=== PATIENT | male | born 1965 | race Asian ===

== ENCOUNTER 2020-01-01 15:51 | Outpatient (REF) | payer OTHER, SELFPAY ==
[2020-01-01 16:12] LABS: COVID-19 Test Positive (Negative)
== END 2020-01-01 15:52 | disposition home or self-care (01) ==
LOC: HO.LAB 15:51
PROVIDERS: Visit Provider Internal Medicine
DX: Z20.828 Contact with and (suspected) exposure to other viral communicable diseases (principal)
CPT/HCPCS: 87635

== ENCOUNTER 2020-01-24 10:52 | Outpatient (REF) | payer OTHER, SELFPAY ==
[2020-01-24 13:39] LABS: COVID-19 Test Negative (Negative)
[2020-01-24 16:03] LABS: SARS COV2 PCR INHOUSE NEGATIVE (Negative)
== END 2020-01-24 10:53 | disposition home or self-care (01) ==
LOC: HO.LAB 10:52
PROVIDERS: Internal Medicine; Visit Provider Emergency Medicine
DX: Z20.828 Contact with and (suspected) exposure to other viral communicable diseases (principal)
CPT/HCPCS: 87635; C9803; U0003

== ENCOUNTER 2020-02-01 20:52 | Outpatient (REF) | payer OTHER, SELFPAY ==
[2020-02-01 21:51] LABS: COVID-19 Test Negative (Negative)
== END 2020-02-01 20:53 | disposition home or self-care (01) ==
LOC: HO.LAB 20:52
PROVIDERS: PCP Internal Medicine; Visit Provider Internal Medicine
DX: Z20.828 Contact with and (suspected) exposure to other viral communicable diseases (principal)
CPT/HCPCS: 87635

== ENCOUNTER 2020-02-19 18:10 | Outpatient (REF) | payer OTHER, SELFPAY ==
[2020-02-19 19:26] LABS: SARS COV2 IgG Positive (Negative)
== END 2020-02-19 18:11 | disposition home or self-care (01) ==
LOC: HO.LAB 18:10
PROVIDERS: PCP Internal Medicine; Visit Provider Nurse Practitioner Primary Care
DX: Z20.828 Contact with and (suspected) exposure to other viral communicable diseases (principal)
CPT/HCPCS: 86769

== ENCOUNTER 2020-03-11 01:56 | Outpatient (REF) | payer OTHER, SELFPAY ==
[2020-03-11 02:25] LABS: COVID-19 Test Negative (Negative)
== END 2020-03-11 01:57 | disposition home or self-care (01) ==
LOC: HO.EMPCOV 01:56
PROVIDERS: Visit Provider Internal Medicine
DX: Z20.828 Contact with and (suspected) exposure to other viral communicable diseases (principal)
CPT/HCPCS: 87635

== ENCOUNTER 2021-01-23 21:46 | Outpatient (REF) | payer OTHER, SELFPAY ==
[2021-01-23 22:58] LABS: Influenza A PCR NEGATIVE (Negative); Influenza B PCR NEGATIVE (Negative); Resp Syncy Virus RNA Qual PCR NEGATIVE (Negative); SARS COV2 PCR INHOUSE NEGATIVE (Negative)
== END 2021-01-23 21:47 | disposition home or self-care (01) ==
LOC: HO.LAB 21:46
PROVIDERS: Visit Provider Internal Medicine
DX: Z20.822 Contact with and (suspected) exposure to COVID-19 (principal)
CPT/HCPCS: 0241U; 36415

== ENCOUNTER 2021-01-28 00:31 | Outpatient (REF) | payer OTHER, SELFPAY ==
[2021-01-28 01:41] LABS: Influenza A PCR NEGATIVE (Negative); Influenza B PCR NEGATIVE (Negative); Resp Syncy Virus RNA Qual PCR NEGATIVE (Negative); SARS COV2 PCR INHOUSE NEGATIVE (Negative)
== END 2021-01-28 00:32 | disposition home or self-care (01) ==
LOC: HO.LAB 00:31
PROVIDERS: Visit Provider Internal Medicine
DX: Z20.822 Contact with and (suspected) exposure to COVID-19 (principal)
CPT/HCPCS: 0241U; 36415

== ENCOUNTER 2021-02-27 22:21 | Outpatient (REF) | payer OTHER, SELFPAY ==
[2021-02-27 23:12] LABS: Influenza A PCR NEGATIVE (Negative); Influenza B PCR NEGATIVE (Negative); Resp Syncy Virus RNA Qual PCR NEGATIVE (Negative); SARS COV2 PCR INHOUSE NEGATIVE (Negative)
== END 2021-02-27 22:22 | disposition home or self-care (01) ==
LOC: HO.LAB 22:21
PROVIDERS: PCP Internal Medicine; Visit Provider Physician Assistant
DX: Z20.822 Contact with and (suspected) exposure to COVID-19 (principal); R05.9 Cough, unspecified; R51.9 Headache, unspecified
CPT/HCPCS: 0241U; 36415

== ENCOUNTER 2021-03-12 01:35 | Outpatient (REF) | payer OTHER, SELFPAY ==
[2021-03-12 02:00] LABS: COVID-19 Test Negative (Negative); IDNOW Serial# 9DD0AD1C
== END 2021-03-12 01:36 | disposition home or self-care (01) ==
LOC: HO.LAB 01:35
PROVIDERS: Visit Provider Internal Medicine
DX: Z20.822 Contact with and (suspected) exposure to COVID-19 (principal)
CPT/HCPCS: 36415; 87635

== ENCOUNTER 2022-10-25 15:45 | Outpatient (AMB) | payer OTHER, SELFPAY ==
--- NOTE | 2022-10-25 15:47 | MHC.OFFVIS ---
Intake Vital Signs 10/25/22 15:49 Height 5 ft 9 in Weight 178 lb BMI 26.3 BP 116/78 Blood Pressure Location Lt brachial Position Sitting Pulse 69 Pulse Source Monitor Intake Visit Reasons: NPV/SELF/CHEST PAIN Intake Note: New patient visit witH EKG for evaluation of chest pain and shortness of breath. 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 Over the last 2 years he has noticed that he gets short of breath with activities actually when he is running or pushing himself. He also gets some chest tightness. These symptoms have progressed somewhat over the last 2 years. He is saying he has stopped running and just does weight training at this stage. He also has background of hyperlipidemia and uses fenofibrate. He has history of seizure disorder and was seizure-free till recently when he had a seizure and has been started on Keppra at this stage. Strong family history of coronary artery disease with father and many other family members getting MIs. Blood pressure control is good. [facility] Surgical History (Updated 10/25/22 @ 15:49 by KRYSTIN Frank) H/O vasectomy Family History (Updated 10/25/22 @ 15:49 by KRYSTIN Frank) Father Coronary stent patent Mother No problems noted. Social History (Updated 10/25/22 @ 15:49 by KRYSTIN Frank) Alcohol intake: never Patient Tobacco Use Status: Never used Tobacco Review of Systems Const Denies chills, Denies daytime sleepiness, Denies fatigue, Denies fever(s), Denies frequent falls, Denies night sweats, Denies snoring, Denies weakness, Denies weight gain and Denies weight loss Eyes Denies loss of vision ENT Denies dizziness and Denies hearing loss Card Denies chest pain, Denies chest pain with activity, Denies syncope, Denies rapid heart rate, Denies edema, Denies claudication, Denies leg edema, Denies lightheadedness, Denies palpitations, Denies dyspnea, Denies dyspnea on exertion and Denies orthopnea Resp Denies cough, Denies excessive phlegm production, Denies dyspnea, Denies dyspnea on exertion, Denies snoring and Denies wheezing GI Denies abdominal pain, Denies hematochezia, Denies change in bowel habits, Denies change in stool character, Denies heartburn, Denies nausea and Denies vomiting Denies hematuria, Denies dysuria and Denies urinary frequency Musc Denies arthralgias, Denies muscle weakness, Denies numbness and Denies tingling Skin/Breast Denies nail changes and Denies rash Neuro Denies Abnormal speech present, Denies dizziness, Denies syncope, Denies frequent falls, Denies loss of vision, Denies memory loss, Denies numbness, Denies tingling and Denies weakness Psych Denies depression and Denies memory loss Endo Denies fatigue and Denies palpitations Aller/Immun Denies wheezing Physical Exam Vital Signs: Last Vital Signs Pulse 69 10/25/22 15:49 BP 116/78 10/25/22 15:49 BMI result Body Mass Index 26.3 GENERAL APPEARANCE: in no acute distress, pleasant. NECK: no carotid bruit, no jugular venous distention. SKIN: no suspicious lesions, warm and dry. HEART: no murmurs, regular rate and rhythm. LUNGS: clear to auscultation bilaterally. ABDOMEN: soft, nontender. EXTREMITIES: no edema. PERIPHERAL PULSES: equal. NEUROLOGIC: No gross deficits, AAO X 3 Neuro Speech: No Abnormal speech present Office Procedures EKG Details: Sinus rhythm 69 beats per minute, normal ECG, QTC 411 milliseconds. [id number], Complete Assessment & Plan Assessment & Plan (1) Chest pain: Code(s): R07.9 - Chest pain, unspecified Plan Pleasant 57 year gentleman who is here for assessment of chest pain. He has been experiencing some chest tightness along with dyspnea over the last couple of years. This was happening with running and going up hill. He feels that the symptoms are somewhat progressive. Given his age and family history there is concern for underlying coronary artery disease. After discussion we have decided to refer him for a coronary CT angiogram. Will also do some basic blood workup including lipid panel. He previously had elevated triglycerides and his LDL could not be calculated. While being on Tricor hopefully his triglyceride levels probably have improved and we will be able to calculate an LDL level. If triglycerides are too high then we will get a direct LDL level. Thank you for allowing me to participate in the care of your patient. Please feel free to contact me if you have any questions. Orders: Orders CT Cardiac Coronary Angio Today R07.9 - Chest pain, unspecified Lipid Panel Today R07.9 - Chest pain, unspecified Comprehensive Met. Panel Today R07.9 - Chest pain, unspecified Complete Blood Count Auto Diff Today R07.9 - Chest pain, unspecified Coding Level of Care Code Procedure Only Diagnoses Chest pain R07.9 CPT Codes EKG - CPT: 90982-[id number], Complete ([id number])
[2022-10-25 15:49] VITALS: BP 116/78; PULSE 69; BMI 26.3
== END 2022-10-25 16:18 | disposition home or self-care (01) ==
LOC: HO.HCS 15:46
PROVIDERS: PCP Internal Medicine; Visit Provider Internal Medicine Cardiovascular Disease
DX: R07.9 Chest pain, unspecified (principal)
CPT/HCPCS: 93010

== ENCOUNTER → 2022-10-25 15:45 | Outpatient (BNVA) | payer OTHER, SELFPAY | PROVIDERS: PCP Internal Medicine; Visit Provider Internal Medicine Cardiovascular Disease | DX: R07.9 Chest pain, unspecified (principal); R06.02 Shortness of breath; E78.5 Hyperlipidemia, unspecified; Z82.49 Family history of ischemic heart disease and other diseases of the circulatory system | CPT/HCPCS: 93005 ==

== ENCOUNTER → 2022-11-23 23:59 | Outpatient (BNV) | payer OTHER, SELFPAY | PROVIDERS: PCP Internal Medicine; Visit Provider Internal Medicine Cardiovascular Disease | DX: I20.8 Other forms of angina pectoris (principal) | CPT/HCPCS: 93458; 99152 ==

== ENCOUNTER 2024-09-22 08:15 | Outpatient (REF) | payer OTHER, SELFPAY ==
--- OUTSIDE RECORDS SUMMARY | 2024-09-22 08:22 | XMS_ITS | Clinical Summary ---
Author Organization [facility] Address [address] [place] [address] Care Team Providers Care Pathologist Name Role Phone Jacy Waters MD Primary Care Provider [phone] Allergies No known active allergies Medications levETIRAcetam (KEPPRA) 500 MG tablet Take 1 tablet (500 mg total) by mouth 2 (two) times a day. 60 tablet 09/27/2022 Active Social History Tobacco Use Types Packs/Day Years Used Date Smoking Tobacco: Never Tobacco Cessation:Counseling Given: Not Answered Alcohol Use Standard Drinks/Week Comments Never 0 (1 standard drink = 0.6 oz pur e alcohol) Sex and Gender Information Value Date Recorded Sex Assigned at Male 09/27/2022 12:43 PM EDT Legal Sex Male 2:22 PM EDT Gender Identity Male 09/27/2022 12:43 PM EDT Sexual Orientation Heterosexual (straight) 09/27 12:43 PM EDT Last Filed Vital Signs Vital Sign Reading Time Taken Comments Blood Pressure 111/81 09/27/2022 1:06 PM EDT Pulse 85 09/27/2022 1:06 PM EDT Temperature 36.3 C (97.3 F) 09/27/2022 12:02 PM EDT Respiratory Rate 16 09/27/2022 1:06 PM EDT Oxygen Saturation 96% 09/27/2022 1:06 PM EDT Inhaled Oxygen Concentration - - Weight 79.4 kg (175 lb) 09/27/2022 12:02 PM EDT Height 177.8 cm (5' 10 ) 09/27/2022 12:02 PM EDT Body Mass Index 25.11 09/27/2022 12:02 PM EDT Plan of Treatment Health Maintenance Due Date Last Done Comments Hepatitis C Virus Screening 1966 HIV Screening 1979 DTaP/Tdap/Td Vaccines (1 - Tdap) 1985 Hepatitis B Vaccines (1 of 3 - 19+ 3-dose series) 12/18 Colonoscopy 2011 Pneumococcal Vaccines 50+ (1 of 1 - PCV) 01/07/2016 Zoster (Shingles) Vaccine (1 of 2) 01/07/2016 COVID-19 Vaccine (1 - 2023- season) 2023 Influenza Vaccine 10/17/2024 Insurance Care Teams Pathologist Relationship Specialty Start Date End Date Jacy Waters MD [address] [place] [address] PCP - General Internal Medicine 11/02/23
--- OUTSIDE RECORDS SUMMARY | 2024-09-22 08:22 | XMS_ITS | Patient Health Record ---
Author Organization [facility] Address [address] [place] [address] Care Team Providers Care Personnel Specialist Name Role Phone TRACEY PEÑA Primary Care Provider Unavail able Aureliano Pearce Unavailable [phone] Reason For Referral No Information Medications Medication SIG (Take, Route, Frequency, Duration) Notes Start Date End Date Status Multivitamin Active Social History Tobacco Use: Social History Observation Description Date Details (start date - stop date) Never Smoker NA - NA Tobacco Use/Smoking Question Answer Notes Patient is a nonsmoker Alcohol Screen Question Answer Notes Did you have a drink containing alcohol in the p ast year? No Points 0 Interpretation Negative Section Notes: Nonsmoker; no alcohol Problems Problem Type SNOMED Code ICD Code Onset Dates Problem Status W/U Status Risk Notes Problem [id number] Encounter for screening for malignant neoplasm of colon (Z12.11) Active confirmed Problem 68613476 Esophageal dysphagia (R13.10) Active confirmed Plan Of Treatment Future Test Test Name Order Date UPPER GI ENDOSCOPY BALLOOON DILATION OF ESOPH 02/13/2017 COLONOSCOPY 02/13/2017 Insurance Providers Payer Name Payer Address Payer Phone Subscriber Number Group Number Insured Name Patient Relationship to Insured Coverage Start Date Coverage End Date R [address] [address] [place] [id number] KIMBERLY HAMMOND Self - patient is the insured Medical (General) History Medical History History ICD Code Denies [place],DM,CVA,Lung disease,renal dise ase Seizure-2011--inactive Surgical History Surgery Date(Month/Year) Vasectomy
--- OUTSIDE RECORDS SUMMARY | 2024-09-22 08:22 | XMS_ITS | Clinical Summary ---
Author Organization [facility] Address [address] [place] [address] Care Team Providers Care Flakeboard Line Tender Name Role Phone Unavailable Primary Care Provider Unavailabl e Social History Tobacco Use Types Packs/Day Years Used Date Smoking Tobacco: Never Assessed Sex and Gender Information Value Date Recorded Sex Assigned at Not on file Gender Identity Not on file Sexual Orientation Not on file Plan of Treatment Health Maintenance Due Date Last Done Comments Hepatitis B Vaccines (1 of 3 - 3-dose series) 1966 Hepatitis C Screening 1966 COVID-19 Vaccine (#1) 1966 Depression Screening 1978 Preventative Health Evaluation 01/07/1984 DTap / Tdap / Td (1 - Tdap) 1985 Colon Cancer Screening (Colonoscopy) 2011 Shingrix-Zoster Vaccine (1 of 2) 01/07/2016 Influenza Vaccine (#1) 2024 Pneumococcal Vaccine Aged Out No long er eligible based on patient's age to complete this topic RSV Ped < 20 months Aged Out No longe r eligible based on patient's age to complete this topic
--- OUTSIDE RECORDS SUMMARY | 2024-09-22 08:23 | XMS_ITS | Data Portability ---
Author Organization [facility], [employer] - [facility] Address [address] [place] [id number] Assessment No assessment recorded. Plan of Treatment Reminders Order Date Submit Date Provider Last Modified By Organization Details Last Modified Time Details Appointments None recorded. Lab tb (M tuberculos is), ifn-gamma ovidio, blood 2017 018 [facility], [address] [place] [address], [address], 8 09:56:25 hepatitis C Ab, serum 2017 018 [facility], [address] [place] [address], [address], 8 09:56:26 hepatitis B surface Ab, qualitativ e, serum 2017 018 [facility] Patient [facility], [address] [place] [address], [address], 8 12:19:58 varicella- zoster igg Ab screen, serum 2017 018 [facility], [address] [place] [address], [address], 8 08:33:38 MMR immunity, serum 2017 018 [facility], [address] [place] [address], [address], 8 09:56:26 drug of abuse panel, urine - chain of custody - 10 drug screen 2017 018 [facility], [address] [facility] [place], [address], 8 11:21:18 Referral None recorded. Procedures None recorded. Surgeries None recorded. Imaging None recorded. Medication Orders None recorded. Patient TargetsNo targets recorded. Patient InstructionsNo instructions recorded. Reason for Referral None Reported. Results Created Date Observation Date Name Description Value Unit Range Abnormal Flag Note LastModifiedBy Organization Detail LastModifiedTime 07/26/19 18 07/25/2017 rubel la Ab, serum rubella 98.5 IU/mL normal React pako: >= 10 IU/mL Not Available [facility] [address] [place] [address] [place], [address], 07/25/2017 11:30:01 07/26/19 18 07/25/2017 hepat itis C virus Ab, serum hep C Ab interp NON-RE ACTIVE nonrea ctive normal Antib odies to Hepat itis C virus not detec aquilino: does not exclu de early acute infec tion. Not Available [facility] [address] [place], [place] [address] [place], [address], 07/25/2017 12:18:39 07/26/19 18 07/25/2017 hepat itis B surfa ce Ab, quali tativ e, serum hep B surf Ab > 1000.0 mIU/m L normal REACT PAKO This patie nt is consi dered immun e to Hepat itis B virus Not Available [facility] [address] [place] [address] [place], [address], 07/25/2017 12:19:58 07/26/19 18 07/26/2017 mumps virus IgG Ab, quant , immun oassa y, serum mumps abs, IgG 41.6 AU/mL immune >10.9 normal Negat pako <9.0 Equiv ocal 9.0 - 10.9 Posit pako >10.9 A posit pako resul t gener ally indic ates past expos ure to Mumps virus or previ ous vacci natio n. Not Available [facility] [address] [place], [place] [address], [address], 07/26/2017 08:33:36 07/26/19 18 07/26/2017 measl es igg Ab, serum rubeola Ab, IgG >300.0 AU/mL immune >29.9 normal Negat pako <25.0 Equiv ocal 25.0 - 29.9 Posit pako >29.9 Prese nce of antib odies to Rubeo la is presu mptiv e evide nce of immun ity excep t when acute infec tion is suspe cted. Perfo rmed at: RN - [facility] [place] [address], [place] [address] Lab Direc tor: Kendrick Phillips MD, Phone : [phone] Not Available [facility] [address] [place] [address], [address], 07/26/2017 08:33:37 07/26/19 18 07/26/2017 varic niki- zoste r igg Ab scree n, serum vz IgG 1025 index immune >165 normal Negat pako <135 Equiv ocal 135 - 165 Posit pako >165 A posit pako resul t gener ally indic ates expos ure to the patho gen or admin istra tion of speci fic immun oglob ulins , but it is not indic ation of activ e infec tion or stage of disea se. Not Available [facility] [address] [place], [address], 07/26/2017 08:33:38 07/26/19 18 07/27/2017 Mycob acter ium tuber culos is stimu lated gamma inter feron , qual, blood qferon TB gold Negati ve negati ve normal The speci men recei loly for Quant iFERO N testi ng was incub ated by the order ing insti tutio n. Speci fic proce dures outli susana in our Direc tory of Servi silvia and in the packa ge inser t for the Quant iFERO N Gold (In Tube) test must be follo wed to enabl e for prope r stimu latio n of cells for the produ ction of inter feron gamma . Not Available [facility] [address] [place], [address], 07/27/2017 15:28:35 07/26/19 18 07/27/2017 Mycob acter ium tuber culos is stimu lated gamma inter feron , qual, blood qferon criteria Commen t . normal To be consi dered posit pako a speci men shoul d have a TB Ag minus Nil value great er than or equal to 0.35 IU/mL and in addit ion the TB Ag minus Nil value must be great er than or equal to 25% of the Nil value . There may be insuf ficie nt infor matio n in these value s to diffe renti ate betwe en some negat pako and some indet ermin ate test value s. Not Available [facility] [address] [place], [address], 07/27/2017 15:28:35 07/26/19 18 07/27/2017 Mycob acter ium tuber culos is stimu lated gamma inter feron , qual, blood qf TB Ag value 0.11 IU/mL . normal Not Available [facility] [address] [place], [address], 07/27/2017 15:28:35 07/26/19 18 07/27/2017 Mycob acter ium tuber culos is stimu lated gamma inter feron , qual, blood qferon nil fidel 0.04 IU/mL . normal Not Available [facility] [address] [place], [address], 07/27/2017 15:28:35 07/26/19 18 07/27/2017 Mycob acter ium tuber culos is stimu lated gamma inter feron , qual, blood qferon emma fidel >10.00 IU/mL . normal Not Available [facility] [address] [place], [address], 07/27/2017 15:28:35 07/26/19 18 07/27/2017 Mycob acter ium tuber culos is stimu lated gamma inter feron , qual, blood qftb Ag-nil fidel 0.07 IU/mL . normal Not Available [facility] [address] [place], [address], 07/27/2017 15:28:35 07/26/19 18 07/27/2017 Mycob acter ium tuber culos is stimu lated gamma inter feron , qual, blood interpretati on: Commen t . normal The Quant iFERO N TB Gold (in Tube) assay is inten ded for use as an aid in the diagn osis of TB infec tion. Negat pako resul ts sugge st that there is no TB infec tion. In patie nts with high suspi cion of expos ure, a negat pako test shoul d be repea aquilino. A posit pako test indic ates infec tion with Mycob acter ium tuber culos is. Among indiv idual s witho ut tuber culos is infec tion, a posit pako test may be due to expos ure to M. elsa de jesus, Shaan nair or Antony. bi mclean. On the Inter net, go to cdc.g ov/tb for furth er detai ls. Perfo rmed at: RN - [facility] christy cates [address] [place] [address] [facility] [place] [address] Lab Direc tor: Kendrick Phillips MD, Phone : [phone] Not Available [facility] [address] [place], [address], 07/27/2017 15:28:35 Result Notes None recorded. Medical Equipment None Reported. Allergies No known drug allergies Medications Not known to be on any medication Vitals Date Recorded Systolic And Diastolic Provider Name and Address Organization Details Last Updated DateTime 07/25/2017 120/80 mm[Hg] Mya Garcia NP [facility] 07/26/2017 11:22:15 Social History None recorded. Functional Status None recorded. Mental Status None recorded. Family History Nothing Reported. Medical History No medical history recorded. Past Encounters Encounter ID Performer Location Encounter Start Date Encounter Closed Date Diagnosis/Indication Diagnosis SNOMED-CT Code Diagnosis ICD10 Code Diagnosis Note [id number] MYA CHINO NP [facility] [address] [facility],[address] [place] [address] 07/25/2017 08:38:49 07/26/2017 11:24:50 History and physical examination, pre-employment [id number] Z02.1 Health Concerns Section Related Observation LastModified by Organization Detai ls LastModified Time None Recorded Concern Status LastModified by Organization Details LastModified Time None Recorded Advance Directives Directive None Recorded Payers Insurance Date Sequence Insurance Name Policy Number Policy Baron Covered Member ID Baron Member ID Guarantor Name 07/24/2017 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 He believes, based upon the job description that was provided to him that he can handle all duties and responsibilities of the job. He denies any history of work related injury. He states that he recently received a TDaP vaccine at an annual physical and will forward the results to this office. Mya Garcia NP [facility] [place] - [facility] 07/26/2017 11:24:45
[2024-09-22 08:50] LABS: MANUAL DIFF FLAG NO
[2024-09-22 09:35] LABS: Hematocrit 45.8 % (42.0-52.0); Hemoglobin 15.2 g/dl (14.0-18.0); Imm Gran Abs Auto 0.01 X10*3/uL (0.00-0.03); Imm Gran Pct Auto 0.2 % (0.0-0.4); Lymphocytes Absolute Auto 1.9 X10*3/uL (1.2-4.9); Mean Corpuscular HGB Conc 33.2 g/dl (31.0-36.0); Mean Corpuscular Hemoglobin 26.0 pg (27.0-33.0); Mean Corpuscular Volume 78.4 fL (80.0-98.0); NRBC Abs Auto 0.000 X10*3/uL (0.0-0.012); NRBC Pct Auto 0.0 /100WBC (0.0-0.2); Platelet Count 334 X10*3/uL (160-400); Red Blood Count 5.84 X10*6/uL (4.60-5.80); White Blood Count 6.0 X10*3/uL (4.8-10.8)
[2024-09-22 09:45] LABS: Hemoglobin A1C 145.3783 umol/L; Total Hemoglobin (HGBA1C) 4006.7589 umol/L
[2024-09-22 11:36] LABS: Alanine Aminotransferase 27 U/L (0-40); Albumin Level 4.5 g/dL (3.5-5.0); Alkaline Phosphatase 64 U/L (39-117); Anion Gap 12 (12-20); Aspartate Amino Transferase 32 U/L (5-37); Blood Urea Nitrogen 12 mg/dL (9-16); Calcium 8.9 mg/dL (8.4-10.2); Carbon Dioxide 27 mmol/L (22-29); Chloride 107 mmol/L (96-108); Cholesterol 230 mg/dL (<200); Estimated Glomerular Filt Rate > 60; HDL Cholesterol 44 mg/dL (>40); Potassium 4.1 mmol/L (3.3-5.1); Sodium 142 mmol/L (135-145); Total Protein 6.9 g/dL (6.5-8.0); Triglycerides 171 mg/dL (<150)
[2024-09-23 08:12] LABS: HBS Num1 883.10 mIU/mL (0-7.99); ~Hepatitis B Surface Antibody REACTIVE (Nonreactive)
[2024-09-23 10:53] LABS: Rubeola IgG (Measles) >300.00 AU/mL
[2024-09-23 12:09] LABS: Free Prostate Spec Ag 0.2 ng/mL; Percent Free Prostate Spec Ag 14 % (calc) (>25)
[2024-09-26 08:14] LABS: Quantiferon TB Gold Plus 1 NEGATIVE (NEGATIVE); TB Test (QFT) Mitogen -Nil >10.00 IU/mL; TB Test (QFT) Nil 0.03 IU/mL; TB Test (QFT) Plus TB1 -Nil 0.00 IU/mL; TB Test (QFT) Plus TB2 -Nil <0.00 IU/mL
== END 2024-09-22 08:16 | disposition home or self-care (01) ==
LOC: HO.LAB 08:15
PROVIDERS: Visit Provider Physician Assistant
DX: Z00.01 Encounter for general adult medical examination with abnormal findings (principal); R56.9 Unspecified convulsions; E78.2 Mixed hyperlipidemia; Z13.1 Encounter for screening for diabetes mellitus
CPT/HCPCS: 36415; 80053; 80061; 83036; 84154; 84443; 85025; 86480; 86706; 86735; 86762; 86765; 86787

== ENCOUNTER 2024-11-07 10:29 | Outpatient (REF) | payer OTHER, SELFPAY ==
--- NOTE | ~2024-11-07 | MR_ITS ---
EXAMINATION: MR ABDOMEN WITHOUT AND WITH CONTRAST CLINICAL INFORMATION: Epigastric pain. COMPARISON: Correlated to report without imaging CT abdomen dated January 28, 2014. TECHNIQUE: MR abdomen was performed without and with use of 8.0 mL intravenous [(Gadavist) gadolinium contrast. Postcontrast images are performed in multiphase dynamic sequences. Imaging was performed in 3 planes. No reported immediate complications FINDINGS: Patient's breathing motion artifact. LUNG BASES: No enhancing mass. Probable compression atelectasis lung bases. LIVER, GALLBLADDER, AND BILIARY TREE: [Liver measures 20 cm. No enhancing mass. Portal veins, hepatic veins and intrahepatic portion demonstrated normal flow void signal. No intrahepatic biliary ductal dilatation. Gallbladder is fluid-filled contracted without pericholecystic fluid collection or gallbladder wall thickening. Common bile duct measures 4 mm. PANCREAS: No focal mass. No main pancreatic ductal dilatation. No peripancreatic fluid collection. SPLEEN: 10 cm. No mass. ADRENAL GLANDS: No nodular lesions. Soft tissue fullness left adrenal gland with drop of the signal in the out of phase sequence. KIDNEYS AND URETERS: No renal mass. No hydronephrosis. Normal enhancement pattern of the renal parenchyma. Probable small 4 mm cyst in the left kidney. GASTROINTESTINAL TRACT: Small hiatal hernia. No intestinal obstruction pattern. Abundant stool large intestine. No ascites. ABDOMINAL WALL: Small fat-containing umbilical hernia. LYMPH NODES: No mesenteric or retroperitoneal lymphadenopathy. VASCULAR: No aneurysm or dissection abdominal aorta. Tortuosity of the abdominal aorta. No focal stenosis in the abdominal aorta or the origin of the mesenteric arteries nor the main renal arteries. OSSEOUS STRUCTURES: No acute fracture or gross listhesis. Mild multilevel thoracolumbar stenosis. MR/MR abdomen wo/w con IMPRESSION: Small hiatal hernia. Small tiny fat-containing umbilical hernia. Hepatomegaly. Electronically signed by: Jim Cheney MD 11/07/2024 12:05 PM EDT
--- OUTSIDE RECORDS SUMMARY | 2024-11-07 10:32 | XMS_ITS | Clinical Summary ---
Author Organization [facility] Address [address] [place] [address] Care Team Providers Care Enterprise Analyst Name Role Phone Unavailable Primary Care Provider [...]
--- OUTSIDE RECORDS SUMMARY | 2024-11-07 10:32 | XMS_ITS | Clinical Summary ---
Author Organization [facility] Address [address] [place] [address] Care Team Providers Care Relays Draftsperson Name Role Phone Jacy Waters MD Primary Care Provider [phone] Allergies No known active allergies Medications levETIRAcetam [...] 2023 Influenza Vaccine 10/17/2024 Insurance Care Teams Relays Draftsperson Relationship Specialty Start Date End Date Jacy Waters MD [address] [place] [address] PCP - General Internal Medicine 11/02/23
--- OUTSIDE RECORDS SUMMARY | 2024-11-07 10:32 | XMS_ITS ---
Author Name [facility] Organization Unknown Encounters Encounter Type Encounter Reason Primary Diagnosis Location Date Emergency Unspecified convulsions [employer] 09/27/2022 Care Team Organization Name Specialty Phone Email Start Date End Da te [facility] Primary Care 09/27/202202/2023 [facility] 09/27/2022
--- OUTSIDE RECORDS SUMMARY | 2024-11-07 10:32 | XMS_ITS | Patient Health Record ---
Author Organization [facility] Address [address] [place] [address] Care Team Providers Care Wireless Network Engineer Name Role Phone TRACEY PEÑA Primary Care Provider Unavail able Aureliano Pearce Unavailable [phone] Reason For Referral No Information Medications Medication [...] Problem Status W/U Status Risk Notes Problem [id number] Encounter for screening for malignant neoplasm of colon (Z12.11) Active confirmed Problem 94560651 Esophageal dysphagia (R13.10) Active confirmed Plan Of Treatment Future Test Test Name Order Date UPPER GI ENDOSCOPY BALLOOON DILATION OF ESOPH 02/13/2017 COLONOSCOPY 02/13/2017 Insurance Providers Payer Name Payer Address Payer Phone Subscriber Number Group Number Insured Name Patient Relationship to Insured Coverage Start Date Coverage End Date R [address] [address] [place] [id number] KIMBERLY HAMMOND Self - patient is the insured Medical (General) History Medical History History ICD Code Denies [place],DM,CVA,Lung disease,renal dise ase Seizure-2011--inactive Surgical History Surgery Date(Month/Year) Vasectomy
== END 2024-11-07 10:30 | disposition home or self-care (01) ==
LOC: HO.MRI 10:29
PROVIDERS: PCP Internal Medicine; Visit Provider Physician Assistant Medical
DX: R10.13 Epigastric pain (principal); Z80.0 Family history of malignant neoplasm of digestive organs
CPT/HCPCS: 74183; A9585

== ENCOUNTER → 2024-11-07 10:36 | Outpatient (BNV) | payer OTHER, SELFPAY | PROVIDERS: PCP Internal Medicine; Visit Provider Radiology Diagnostic Radiology | DX: R16.0 Hepatomegaly, not elsewhere classified (principal) | CPT/HCPCS: 74183 ==